=== PATIENT | female | born 1945 | race African-American/Black ===

== ENCOUNTER 2017-09-12 14:41 | Inpatient (IN) | payer OTHER, MEDICAID ==
[~2017-09-12] VITALS: Ht 152.4 cm; Wt 88.5 kg
[2017-09-12] VITALS (10 sets, daily range): BP systolic 78–100; BP diastolic 35–84
--- NOTE | 2017-09-12 14:45 | NUR ---
[id number] FROM [facility] FOR LOW BP- SBP-70'S, PATIENT HAD SOME LOW BP EPISODES YESTERDAY. RR IS EVEN AND UNLABORED WITH NAD NOTED. SKIN IS WARM AND DRY. AWAITING MD FOR EVAL. PLACED ON MONITOR. WILL CONTINUOUSLY MONITOR THE PATIENT.
--- NOTE | 2017-09-12 14:56 | NUR ---
DR COX AT FOR EVL.
[2017-09-12] MEDS ORDERED: ACETAMINOPHEN 650 MG/SUPP.RECT RC ONE (15:00)
[2017-09-12 15:09] LABS: BASOPHILS # (AUTO) 0.1 /CMM (0.0-0.2); BASOPHILS % (AUTO) 0.3 % (0.0-2.0); EOSINOPHILS # (AUTO) 0.9 /CMM (0.0-0.7); EOSINOPHILS % (AUTO) 3.1 % (0.0-6.0); HEMATOCRIT 34 % (33-45); LYMPHOCYTES # (AUTO) 0.7 /CMM (0.8-4.8); LYMPHOCYTES % (AUTO) 2.3 % (20.0-44.0); MEAN CORPUSCULAR HEMOGLOBIN 28 PG (26.0-33.0); MEAN CORPUSCULAR HGB CONC 33 g/dl (31.0-36.0); MEAN CORPUSCULAR VOLUME 86 fL (82-100); MONOCYTES # (AUTO) 1.7 /CMM (0.1-1.30); MONOCYTES % (AUTO) 5.9 % (2.0-12.0); NEUTROPHILS # (AUTO) 25.9 /CMM (1.8-8.9); NEUTROPHILS % (AUTO) 88.4 % (43.0-81.0); PLATELET COUNT (AUTO) 113 /CMM (150-450); RDW COEFFICIENT OF VARIATION 18.1 (11.5-15.0); RED BLOOD CELL COUNT(AUTO) 3.95 MIL/uL (4.0-5.2); WHITE BLOOD COUNT (AUTO) 29.3 K/uL (4.3-11.0)
[2017-09-12] MEDS ORDERED: ACETAMINOPHEN 650 MG/20.3 ML UDC ONE (15:09)
[2017-09-12 15:20] LABS: INR 1.06 (0.85-1.15)
[2017-09-12 15:24] LABS: TROPONIN I 0.344 ng/mL (0.00-0.056)
[2017-09-12] MEDS ORDERED: ACETAMINOPHEN 650 MG/20.3 ML UDC GT ONE (15:30)
[2017-09-12] MEDS ORDERED: ALBUMIN 25% 12.5 GM/50 ML BOTTLE IV ONE (15:30)
[2017-09-12 15:38] LABS: ALANINE AMINOTRANSFERASE 43 U/L (12-78); ALBUMIN 2.8 g/dL (3.4-5.0); ALKALINE PHOSPHATASE 226 U/L (46-116); ASPARTATE AMINOTRANSFERASE 74 U/L (15-37); BILIRUBIN,DIRECT 0.2 mg/dL (0.0-0.2); BILIRUBIN,TOTAL 0.5 mg/dL (0.2-1.0); CALCIUM, SERUM 11.6 mg/dL (8.5-10.1); CARBON DIOXIDE 21 mmol/L (21-32); CHLORIDE 92 mmol/L (98-107); POTASSIUM 5.7 mmol/L (3.5-5.1); SODIUM SERUM 136 mmol/L (136-145); TOTAL PROTEIN, SERUM 8.7 g/dL (6.4-8.2)
[2017-09-12 15:40] LABS: CREATININE 8.2 mg/dL (0.6-1.3); GLUCOSE 421 mg/dL (74-106); UREA NITROGEN, BLOOD 134 mg/dL (7-18)
[2017-09-12 15:54] LABS: NEUTROPHILS % (MANUAL) 84 (42-76)
[2017-09-12 15:55] LABS: BAND % (MANUAL) 7 % (0.0-5.0); LYMPHOCYTES % (MANUAL) 2 % (16-48); MONOCYTES % (MANUAL) 7 % (0-11.0)
[2017-09-12] MEDS ORDERED: PIPERACILLIN /TAZOBACTAM 2.25 G in IV D5W 50 ML IV ONE (16:00)
[2017-09-12] MEDS ORDERED: VANCOMYCIN 1 GM in IV D5W 250 ML IV ONE ×2 (16:00→18:30)
[2017-09-12 16:05] LABS: ABG BASE EXCESS -4.9 mmol/L; ABG OXYGEN SATURATION 93.7 % (92.0-98.5); ABG PCO2 31.8 mmHg (35.0-45.0); ABG PH 7.395 (7.350-7.450); ABG PO2 75.7 mmHg (75.0-100.0); AaDO2 86.4 mmHg; COHb 0.7 % (0.5-1.5); MetHb 0.3 % (0.0-1.5); O2Hb 92.8 % (94.0-97.0); SITE, ABG Right Radial
[2017-09-12] MEDS ORDERED: ASPIRIN 81 MG TAB.CHEW NG ONE (16:30)
[2017-09-12] MEDS ORDERED: INSULIN REGULAR, HUMAN 100 UNIT/ML 10 ML VIAL IV ONE (16:30)
[2017-09-12] MEDS ORDERED: SODIUM POLYSTYRENE SULFONATE 15 G/60 ML BOTTLE NG ONE (16:30)
[2017-09-12] MEDS ORDERED: ALBUTEROL FS 2.5 MG/0.5 ML VIAL.NEB NEB ONE (16:30)
--- NOTE | 2017-09-12 16:30 | NUR ---
RESHMA EPRP CALLED [phone]
[2017-09-12] MEDS ORDERED: FERR220S2 GT (16:39)
[2017-09-12] MEDS ORDERED: PANT40TA2 GT (16:39)
[2017-09-12] MEDS ORDERED: HYDR-552 GT (16:39)
[2017-09-12] MEDS ORDERED: NUTR100037 GT (16:39)
[2017-09-12] MEDS ORDERED: FOLI0.8T2 GT (16:39)
[2017-09-12] MEDS ORDERED: ONDA4TAB8 PO (16:39)
[2017-09-12] MEDS ORDERED: LEVE500T9 GT (16:39)
[2017-09-12] MEDS ORDERED: ASPI-1169 GT (16:39)
[2017-09-12] MEDS ORDERED: INSU100V3 SQ (16:39)
[2017-09-12] MEDS ORDERED: SEVE0.8P GT (16:39)
[2017-09-12] MEDS ORDERED: LEVO25TA9 GT (16:39)
[2017-09-12] MEDS ORDERED: AMIO200T2 GT (16:39)
[2017-09-12] MEDS ORDERED: MIDO5TAB GT (16:39)
[2017-09-12] MEDS ORDERED: METO-295 GT (16:39)
[2017-09-12] MEDS ORDERED: BISA10SU8 RC (16:39)
[2017-09-12] MEDS ORDERED: HYDR-552 PO (16:39)
[2017-09-12] MEDS ORDERED: ESCI5TAB GT (16:39)
[2017-09-12] MEDS ORDERED: BISO5TAB2 GT (16:39)
[2017-09-12] MEDS ORDERED: ALBUMIN 25% 50 ML IV ONE ×4 (16:42→19:04)
--- NOTE | 2017-09-12 16:50 | NUR ---
[facility] PAGED [phone] LUKE PARAOPTOMETRIC. OK TO ADMIT TO HOSPITALIST PER RESHMA, PT IS UNSTABLE FOR TRANSFER
[2017-09-12] MEDS ORDERED: SODIUM POLYSTYRENE SULFONATE 15 G/60 ML BOTTLE ONE (17:04)
[2017-09-12] MEDS ORDERED: INSULIN REGULAR, HUMAN 100 UNIT/ML 10 ML VIAL ONE (17:05)
[2017-09-12] MEDS ORDERED: ASPIRIN 81 MG TAB.CHEW ONE (17:05)
--- NOTE | 2017-09-12 17:12 | NUR ---
AUTHORIZED TO SAY AT [facility] ICU BY [facility] PHYSICIAN DR JOSUÉ SHIRLEY. AUTHORIZATION NUMBER: [id number].
[2017-09-12] MEDS ORDERED: ALBUTEROL FS 2.5 MG/3 ML VIAL.NEB ONE (17:22)
--- NOTE | 2017-09-12 17:32 | NUR ---
PAGED DR RAI FOR CONSULT
--- NOTE | 2017-09-12 17:32 | NUR ---
REPAGED EPIC FOR ADMISSION PER DR COX
--- NOTE | 2017-09-12 18:25 | NUR ---
PICC LINE INSERTION AT BS.
[2017-09-12] MEDS ORDERED: IV NS 0.9% 1,000 ML BAG IV ONE (18:30)
[2017-09-12] MEDS ORDERED: NOREPINEPHRINE 8 MG in IV D5W 500 ML IV PRN (18:30)
[2017-09-12] MEDS ORDERED: ACETAMINOPHEN 650 MG/SUPP.RECT RC PRN (18:30)
[2017-09-12] MEDS ORDERED: INSULIN REGULAR, HUMAN 100 UNIT/ML 3 ML VIAL SQ PRN (18:30)
[2017-09-12] MEDS ORDERED: ONDANSETRON HCL/PF 4 MG/2 ML VIAL IVP PRN (18:30)
[2017-09-12] MEDS ORDERED: DEXTROSE 50%-WATER 50 ML DISP.SYRIN IV PRN (18:30)
--- NOTE | 2017-09-12 18:30 | NUR ---
REPORT GIVEN TO DAVID CUELLAR FOR [facility] ICU 259
[2017-09-12] MEDS ORDERED: FEE PK DOSING 1 MIN EA MC ONE (18:45)
--- NOTE | 2017-09-12 19:10 | NUR ---
Patient was anuric. Dr Corea made aware.
--- NOTE | 2017-09-12 19:15 | NUR ---
Report given to DAVID Clements for KHADIJAH.
[2017-09-12 19:31] LABS: ALANINE AMINOTRANSFERASE 40 U/L (12-78); ALBUMIN 3.1 g/dL (3.4-5.0); ALKALINE PHOSPHATASE 221 U/L (46-116); ASPARTATE AMINOTRANSFERASE 58 U/L (15-37); BILIRUBIN,DIRECT 0.3 mg/dL (0.0-0.2); BILIRUBIN,TOTAL 0.6 mg/dL (0.2-1.0); CALCIUM, SERUM 11.2 mg/dL (8.5-10.1); CARBON DIOXIDE 22 mmol/L (21-32); CHLORIDE 90 mmol/L (98-107); GLUCOSE 316 mg/dL (74-106); POTASSIUM 4.5 mmol/L (3.5-5.1); SODIUM SERUM 131 mmol/L (136-145); TOTAL PROTEIN, SERUM 8.6 g/dL (6.4-8.2)
[2017-09-12 19:43] LABS: UREA NITROGEN, BLOOD 142 mg/dL (7-18)
[2017-09-12] MEDS ORDERED: ALBUMIN 25% 25 GM in PREMIX 1 EA IV PRN (21:30)
[2017-09-12] MEDS ORDERED: ALBUMIN 25% 100 ML IV ONE (21:31)
[2017-09-12] MEDS ORDERED: ALBUMIN 25% 25 GM in PREMIX 1 EA IV ONE (22:00)
[2017-09-12] MEDS: PIPERACILLIN /TAZOBACTAM 2.25 G in IV NS 0.9% 50 ML IV SCH (22:37)
--- NOTE | 2017-09-12 23:00 | NUR ---
ENERGY AUDIT ADVISOR. AROUND GT SITE LEAKING NOTED.
--- NOTE | 2017-09-12 23:20 | NUR ---
TRAILER ASSEMBLER, ADMISSION, RECEIVED THE PT FROM ER [facility]IA [facility], ROOM 259,ADMITTED FOR SEPSIS,PNA, .PT NONVERBAL OPEN EYES, DOES NOT FOLLOW COMMANDS. MANAGER USER INTERFACE SHOWING NSR. IV RT UPPER ARM MID LINE SALINE LOCK. TRACH INTACT. SHILEY #6,T PIECE CONNECTED TO TRACH TUBE. SAT 98%. NO ACUTE DISTRESS NOTED. GT INTACT. RT SUBCLAVIAN HD CATH INTACT, HOB ELEVATED. SACRAL EXCORIATION NOTED, AFEBRILE. WILL CONTINUE TO MONITOR VITALS.
--- NOTE | 2017-09-12 23:27 | NUR ---
HD DONE. NO FLUIDS REMOVED. , WILL CONTINUE TO MONITOR VITALS.
--- NOTE | 2017-09-12 23:29 | NUR ---
NUCLEAR AUXILIARY OPERATOR, JEFFREY NOT GIVEN , PAGED DR WHATLEY, CLARIFIED THE MD. WILL CONTINUE TO MONITOR.
--- NOTE | 2017-09-12 23:47 | NUR ---
CEO & FOUNDER. DR WHATLEY MADE AWARE NO NEED IV FLUIDS.
[2017-09-13] VITALS (61 sets, daily range): BP systolic 64–140; BP diastolic 31–97
[2017-09-13] MEDS ORDERED: PIPERACILLIN /TAZOBACTAM 4.5 G in IV D5W 100 ML IV SCH ×2
[2017-09-13] MEDS: BLOOD SUGAR DIAGNOSTIC 1 EACH STRIP IN SCH ×2 (00:06→05:13)
--- NOTE | 2017-09-13 04:45 | NUR ---
FINE JEWELRY SALES ASSOCIATE. AM CARE. ORAL CARE, BED BATH GIVEN. LINEN CHANGED. TRACH INTACT. OXYGEN CONNECTED TO TRACH, HOB ELEVATED. GT INTACT. IV RT UPPER ARM MID LINE. SALINE LOCK. AFEBRILE. TURN AND REPOSITION Q2H. WILL CONTINUE TO MONITOR VITALS.
[2017-09-13] MEDS: PIPERACILLIN /TAZOBACTAM 2.25 G in IV NS 0.9% 50 ML IV SCH ×3 (05:04→20:28)
--- NOTE | 2017-09-13 05:31 | NUR ---
R D MANAGER AROUND [id number]. MONITOR SHOWING AFIB UNCONTROLLED. EKG STAT DONE. PAGED DR WHATLEY. WAITING FOR CALL BACK
[2017-09-13 05:32] LABS: HEMATOCRIT 29 % (33-45); HEMOGLOBIN 9.2 g/dL (11.5-14.8); LYMPHOCYTES # (AUTO) 0.5 /CMM (0.8-4.8); LYMPHOCYTES % (AUTO) 1.9 % (20.0-44.0); MEAN CORPUSCULAR HEMOGLOBIN 28 PG (26.0-33.0); MEAN CORPUSCULAR HGB CONC 32 g/dl (31.0-36.0); MEAN CORPUSCULAR VOLUME 87 fL (82-100); MONOCYTES % (AUTO) 11.2 % (2.0-12.0); NEUTROPHILS # (AUTO) 23.6 /CMM (1.8-8.9); NEUTROPHILS % (AUTO) 86.9 % (43.0-81.0); PLATELET COUNT (AUTO) 81 /CMM (150-450); RDW COEFFICIENT OF VARIATION 19.1 (11.5-15.0); RED BLOOD CELL COUNT(AUTO) 3.29 MIL/uL (4.0-5.2); WHITE BLOOD COUNT (AUTO) 27.1 K/uL (4.3-11.0)
[2017-09-13 05:53] LABS: TROPONIN I 0.233 ng/mL (0.00-0.056)
[2017-09-13] MEDS ORDERED: AMIODARONE 150 MG/3 ML VIAL IV ONE (05:56)
[2017-09-13 05:59] LABS: ALANINE AMINOTRANSFERASE 37 U/L (12-78); ALBUMIN 3.6 g/dL (3.4-5.0); ALKALINE PHOSPHATASE 180 U/L (46-116); ASPARTATE AMINOTRANSFERASE 62 U/L (15-37); BILIRUBIN,TOTAL 0.7 mg/dL (0.2-1.0); CALCIUM, SERUM 11.4 mg/dL (8.5-10.1); CARBON DIOXIDE 24 mmol/L (21-32); CHLORIDE 98 mmol/L (98-107); CREATININE 6.7 mg/dL (0.6-1.3); GLUCOSE 138 mg/dL (74-106); POTASSIUM 4.8 mmol/L (3.5-5.1); SODIUM SERUM 142 mmol/L (136-145); TOTAL PROTEIN, SERUM 8.4 g/dL (6.4-8.2)
[2017-09-13] MEDS ORDERED: VANCOMYCIN 500 MG in IV NS 0.9% 100 ML IV PRN (06:00)
[2017-09-13] MEDS ORDERED: PHENYLEPHRINE 80 MG in IV NS 0.9% 250 ML IV PRN (06:00)
[2017-09-13 06:01] LABS: UREA NITROGEN, BLOOD 111 mg/dL (7-18)
[2017-09-13] MEDS ORDERED: PHENYLEPHRINE 10 MG/ML VIAL ONE (06:02)
[2017-09-13] MEDS: AMIODARONE 900 MG in IV D5W 482 ML IV PRN ×2 (06:03→17:46)
[2017-09-13] MEDS: PHENYLEPHRINE 80 MG in IV D5W 250 ML IV PRN ×3 (06:30→23:00)
[2017-09-13] MEDS ORDERED: PROPOFOL 100 ML IV PRN (07:30)
--- NOTE | 2017-09-13 07:45 | NUR ---
RN NOTES DR BHATT AT BEDSIDE, PT SEEN AND EVALUATED. PT FOR CARDIOVERSION NOW, HR 150'S AT THIS TIME. ONGOING AMIODARONE 1 MG/MIN INFUSING ON KHOA MIDLINE. SBP 80'S AT THIS TIME, CHRIS DRIP ADJUSTED TO 100MCG/MIN. PER DR BHATT MAY START PT ON PROPOFOL FOR SEDATION PRE CARDIOVERSION. CHARGE NURSE ANA AT BEDSIDE
[2017-09-13] MEDS ORDERED: ADENOSINE 6 MG/2 ML VIAL ONE (07:51)
--- NOTE | 2017-09-13 07:51 | NUR ---
RN NOTES 0751 PT PLACED ON VENTILATOR, SEDATED ON PROPOFOL 50MCG/KG/MIN. HR 150'S, ADENOSINE 12MG IV PUSH GIVEN X1 ORDERED BY DR BHATT. HR WENT DOWN TO 80'S BRIEFLY. THEN WENT BACK TO 130'S. CARDIOVERSION X1 @200JOULES BY DR BHATT. NURSES AT BEDSIDE. RT AT BEDSIDE. VS CLOSELY MONITORED. HR IMPROVED, 130'S AT THIS TIME 0805 S/P CARDIOVERSION. HR SR NOW HR 75 BPM. WILL CONT TO MONITOR CLOSELY.
[2017-09-13] MEDS: Magnesium 1GM/D5W 100ML PREMIX 100 ML IV SCH ×2 (08:11→09:54)
[2017-09-13] MEDS ORDERED: ADENOSINE 6 MG/2 ML VIAL IVP ONE (08:30)
--- NOTE | 2017-09-13 10:05 | NUR ---
RN NOTES PLACED BACK ON T-PIECE #35%. DIPRIVAN TURNED OFF. PT SR ON AVIATION ELECTRONIC WARFARE OPERATOR HR 80'S. AFEBRILE. WILL MONITOR CLOSELY
[2017-09-13 10:39] LABS: BAND % (MANUAL) 1 % (0.0-5.0); LYMPHOCYTES % (MANUAL) 7 % (16-48); MONOCYTES % (MANUAL) 6 % (0-11.0); NEUTROPHILS % (MANUAL) 86 (42-76)
[2017-09-13] MEDS: *INSULIN REGULAR(HUMULIN R)HUM 100 UNIT/ML VIAL SQ PRN ×3 (12:17→23:53)
[2017-09-13] MEDS ORDERED: INSULIN REGULAR, HUMAN 100 UNIT/ML 3 ML VIAL SQ PRN (12:30)
[2017-09-13] MEDS ORDERED: DEXTROSE 50%-WATER 50 ML DISP.SYRIN IV PRN (12:30)
[2017-09-13] MEDS: HYDROMORPHONE INJ 0.5 MG/0.5 ML SYRINGE IV PRN (14:15)
[2017-09-13] MEDS ORDERED: HYDROGEL DRESSING 90 GM TUBE TP PRN (15:00)
[2017-09-13 17:09] LABS: ABG BASE EXCESS -6.9 mmol/L; ABG PCO2 36.4 mmHg (35.0-45.0); ABG PH 7.321 (7.350-7.450); ABG PO2 67.5 mmHg (75.0-100.0); AaDO2 89.2 mmHg; MetHb 0.9 % (0.0-1.5); O2Hb 87.3 % (94.0-97.0); SITE, ABG Right Brachial; VENT MODE, BG COOL AEROSOL
[2017-09-13] MEDS ORDERED: IV NS 0.9% 250 ML IV ONE ×3 (17:10→17:45)
--- NOTE | 2017-09-13 17:10 | NUR ---
RN NOTES PT NOTED BP 80'S, PT ON CHRIS DRIP@300MIC/MIN. REPORTED TO DR CONCEPCION, ABG STAT. PER OKAY TO GIVE IV BOLUS 250. MAY GIVE ANOTHER IV 250 BOLUS IF SBP BELOW 90'S. 173 ABG RESULTS REPORTED TO DR CONCEPCION. NO NEW ORDER RECEIVED AT THIS TIME. 174 PT BP STILL LOW 86/59. PER DR CONCEPCION GIVE ANOTHER 1V BOLUS 250 AND MAY START IVF NS@50ML/HR. DAUGHTER AT BEDSIDE. UPDATES RE PLAN OF CARE PROVIDED.
[2017-09-13] MEDS: BLOOD SUGAR DIAGNOSTIC 1 EACH STRIP VI SCH ×2 (17:46→23:50)
[2017-09-13] MEDS ORDERED: IV NS 0.9% 1,000 ML BAG IV PRN (18:30)
[2017-09-13] MEDS: IV NS 0.9% 1,000 ML IV PRN (18:34)
--- NOTE | 2017-09-13 19:42 | NUR ---
GRAPHIC SPECIALIST. INITIAL ASSESSMENT. RECEIVED THE PT REST ON THE BED, TRACH INTACT. OXYGEN VIA TRACH T PICS. SAT 98%. NO ACUTE DISTRESS NOTED. CASE FINISHING MACHINE ADJUSTER SHOWING NSR. IV RT UPPER ARM MID LINE IVF NS 50 ML/H,. AMIO 0.5MCG/MIN,CHRIS 300MCG/MIN,AMIO 0.5MCG.MIN,IV RT UPPER ARM MID LINE RT SUBCLAVIAN HD CATH ,GT INTACT, NPO. HOB ELEVATED, TURB=N AND REPOSITION Q2H. WILL CONTINUE TO MONITOR VITALS.
--- NOTE | 2017-09-13 21:26 | NUR ---
Patient is trach dependent, she resides at [facility] sub-acute unit [phone]. Patient is non-verbal, totally dependent with adl's. She gets inhouse hemodialysis every MWF at the [facility]. Patient is a [employer] member, she is not stable for transfer, he is on high dose levophed with marginal blood pressure and his off the ventilator on cool aerosol. Addendum: 09/13/17 at 2126 by KIERRA CONNELL RN Amended: Links added.
[2017-09-14] VITALS (39 sets, daily range): BP systolic 85–136; BP diastolic 19–91
[2017-09-14] MEDS: HYDROMORPHONE INJ 0.5 MG/0.5 ML SYRINGE IV PRN (00:01)
--- NOTE | 2017-09-14 03:40 | NUR ---
OUTSIDE CONTRACTOR SALES. AM CARE, ORAL CARE, BED BATH GIVEN. LINEN CHANGED. REMAINING SAME OXYGEN TOLERATED WELL. SAT 98%. WRAPPER CASHIER SHOWING NSR, IV RT UPPER ARM MIDLINE . IVF NS 50ML/H,CHRIS 300MCG/MIN, LEVOPHED 2MCG/KGMIN, GT INTACT. WILMAN IV RT UPPER ARM MID LINE. IVF NPO. TURN AND REPOSITION Q2H. WILL CONTINUE TO MONITOR.
[2017-09-14] MEDS: PHENYLEPHRINE 80 MG in IV D5W 250 ML IV PRN ×3 (04:04→18:03)
[2017-09-14] MEDS: PIPERACILLIN /TAZOBACTAM 2.25 G in IV NS 0.9% 50 ML IV SCH ×3 (04:56→21:35)
[2017-09-14 05:08] LABS: EOSINOPHILS # (AUTO) 0.1 /CMM (0.0-0.7); EOSINOPHILS % (AUTO) 0.2 % (0.0-6.0); HEMATOCRIT 29 % (33-45); HEMOGLOBIN 9.4 g/dL (11.5-14.8); LYMPHOCYTES # (AUTO) 0.6 /CMM (0.8-4.8); LYMPHOCYTES % (AUTO) 1.4 % (20.0-44.0); MEAN CORPUSCULAR HEMOGLOBIN 28 PG (26.0-33.0); MEAN CORPUSCULAR HGB CONC 33 g/dl (31.0-36.0); MEAN CORPUSCULAR VOLUME 87 fL (82-100); MONOCYTES # (AUTO) 4.8 /CMM (0.1-1.30); MONOCYTES % (AUTO) 11.4 % (2.0-12.0); NEUTROPHILS # (AUTO) 36.3 /CMM (1.8-8.9); PLATELET COUNT (AUTO) 61 /CMM (150-450); RDW COEFFICIENT OF VARIATION 18.8 (11.5-15.0); RED BLOOD CELL COUNT(AUTO) 3.33 MIL/uL (4.0-5.2)
[2017-09-14] MEDS: BLOOD SUGAR DIAGNOSTIC 1 EACH STRIP VI SCH (05:19)
[2017-09-14 05:22] LABS: WHITE BLOOD COUNT (AUTO) 41.7 K/uL (4.3-11.0)
[2017-09-14 05:34] LABS: ALANINE AMINOTRANSFERASE 38 U/L (12-78); ALBUMIN 2.6 g/dL (3.4-5.0); ALKALINE PHOSPHATASE 162 U/L (46-116); ASPARTATE AMINOTRANSFERASE 66 U/L (15-37); BILIRUBIN,TOTAL 0.9 mg/dL (0.2-1.0); CALCIUM, SERUM 7.9 mg/dL (8.5-10.1); CARBON DIOXIDE 23 mmol/L (21-32); CHLORIDE 103 mmol/L (98-107); CREATININE 4.6 mg/dL (0.6-1.3); GLUCOSE 339 mg/dL (74-106); MAGNESIUM 2.4 mg/dL (1.8-2.4); POTASSIUM 3.8 mmol/L (3.5-5.1); SODIUM SERUM 146 mmol/L (136-145); TOTAL PROTEIN, SERUM 7.4 g/dL (6.4-8.2); UREA NITROGEN, BLOOD 71 mg/dL (7-18)
[2017-09-14 05:37] LABS: LYMPHOCYTES % (MANUAL) 3 % (16-48); MONOCYTES % (MANUAL) 7 % (0-11.0); NEUTROPHILS % (MANUAL) 90 (42-76)
--- NOTE | 2017-09-14 07:30 | NUR ---
RN NOTES RECEIVED PT RESTING IN BED. TRACH INTACT. T PIECE CONNECTED TO COOL AEROSOL AT 35% O2. NO ACUTE DISTRESS NOTED. AFIB/ AFLUTTER ON PRESS TECHNICIAN HR 78. NOTED FEBRILE, TEMP 101.5. IV RT UPPER ARM MID LINE WITH ONGOING IVF NS @50 ML/HR. AMIO 0.5MCG/MIN, CHRIS 300MCG/MIN. RT SUBCLAVIAN HD CATH, DRESSING CDI. GT INTACT, CLAMPED. PT NPO. HOB ELEVATED, REPOSITIONED FOR COMFORT. WILL CLOSELY MONITOR
[2017-09-14] MEDS: Z GUARD REMEDY 2 OZ OINT TP SCH (08:36)
[2017-09-14] MEDS ORDERED: *INSULIN REGULAR(HUMULIN R)HUM 100 UNIT/ML VIAL SQ PRN (10:00)
[2017-09-14] MEDS ORDERED: HEPARIN SODIUM, PORCINE 5000 UNITS/1 ML VIAL SQ SCH (10:00)
[2017-09-14] MEDS ORDERED: DEXTROSE 50%-WATER 50 ML DISP.SYRIN IV PRN (10:30)
[2017-09-14] MEDS: PANTOPRAZOLE 40 MG VIAL IV SCH (11:41)
[2017-09-14] MEDS: DIGOXIN INJ 0.5 MG/2 ML AMPUL IV SCH ×3 (11:42→23:35)
--- NOTE | 2017-09-14 11:58 | NUR ---
WOUND CARE CONSULT: PT PRESENTS WITH LEFT GREAT TOE ESCHAR, SACRAL SCARRING AND PERIANAL EXCORIATION, PRESENT ON ADMISSION. PT IS INCONTINENT OF STOOL. CURRENT DHAVAL SCORE IS 12. ALL SKIN PROTECTION AND WOUND RECOMMENDATIONS DISCUSSED WITH NURSING STAFF. WILL SEE PRN. PT ON FIRST STEP MATTRESS. IN AGREEMENT WITH PLAN OF CARE. Addendum: 09/14/17 at 1159 by JAMIE GAGNON WNDNU Amended: Links added.
[2017-09-14] MEDS ORDERED: VANCOMYCIN 1 GM in IV D5W 250 ML IV PRN (12:00)
[2017-09-14] MEDS: BLOOD SUGAR DIAGNOSTIC 1 EACH STRIP IN SCH ×3 (12:03→21:36)
[2017-09-14] MEDS: INSULIN REGULAR, HUMAN 100 UNIT/ML 3 ML VIAL SQ PRN ×3 (12:18→21:35)
[2017-09-14] MEDS: IV NS 0.9% 1,000 ML IV PRN ×2 (14:34→18:03)
[2017-09-14] MEDS: POTASSIUM PHOSPHATE MM 7.5 MMOL in IV D5W 100 ML IV SCH ×2 (16:18→19:16)
--- NOTE | 2017-09-14 20:04 | NUR ---
EMERGENCY SPILL RESPONSE TECHNICIAN. INITIAL ASSESSMENT. RECEIVED THE PT REST ON THE BED. TRACH INTACT. OXYGEN T PIECE CONNECTED TO TRACH.PT RESPONDING PAIN. DOES NOT FOLLOW COMMANDS, GT INTACT, IV RT UPPER ARM MID LINE. IVF NS 100ML/H.HOB ELEVATED,
[2017-09-15] VITALS (77 sets, daily range): BP systolic 52–164; BP diastolic 23–97
[2017-09-15] MEDS: BLOOD SUGAR DIAGNOSTIC 1 EACH STRIP IN SCH ×6 (01:02→20:53)
--- NOTE | 2017-09-15 02:53 | NUR ---
CASTING TESTER, GT FOUND FELL OFF INSIDE THE PT GOWN, NO BLEEDING NOTED. FC CATH INSERTED, WILL CONTINUE TO MONITOR.
--- NOTE | 2017-09-15 03:16 | NUR ---
STEAM AND POWER SUPERVISOR. AM CARE, ORAL CARE, BED BATH GIVEN. LINEN CHANGED, REMAINING SAME OXYGEN VIA TRACH , SAT 98%. RN DOCUMENTATION SHOWING AFIB, HOB ELEVATED, TURN AND REPOSITION Q2H, WILL CONTINUE TO MONITOR VITALS,
[2017-09-15] MEDS: IV NS 0.9% 1,000 ML IV PRN ×2 (03:50→14:20)
[2017-09-15] MEDS: PIPERACILLIN /TAZOBACTAM 2.25 G in IV NS 0.9% 50 ML IV SCH ×3 (04:32→20:43)
[2017-09-15] MEDS: PHENYLEPHRINE 80 MG in IV D5W 250 ML IV PRN ×3 (05:27→17:45)
[2017-09-15 05:28] LABS: EOSINOPHILS # (AUTO) 0.4 /CMM (0.0-0.7); EOSINOPHILS % (AUTO) 1.1 % (0.0-6.0); HEMATOCRIT 30 % (33-45); LYMPHOCYTES # (AUTO) 1.2 /CMM (0.8-4.8); LYMPHOCYTES % (AUTO) 3.1 % (20.0-44.0); MEAN CORPUSCULAR HEMOGLOBIN 28 PG (26.0-33.0); MEAN CORPUSCULAR HGB CONC 33 g/dl (31.0-36.0); MEAN CORPUSCULAR VOLUME 83 fL (82-100); MONOCYTES # (AUTO) 1.4 /CMM (0.1-1.30); MONOCYTES % (AUTO) 3.6 % (2.0-12.0); NEUTROPHILS # (AUTO) 35.5 /CMM (1.8-8.9); NEUTROPHILS % (AUTO) 92.2 % (43.0-81.0); PLATELET COUNT (AUTO) 95 /CMM (150-450); RDW COEFFICIENT OF VARIATION 20.4 (11.5-15.0); RED BLOOD CELL COUNT(AUTO) 3.61 MIL/uL (4.0-5.2)
[2017-09-15 05:48] LABS: WHITE BLOOD COUNT (AUTO) 38.5 K/uL (4.3-11.0)
[2017-09-15 06:11] LABS: LYMPHOCYTES % (MANUAL) 2 % (16-48); MONOCYTES % (MANUAL) 6 % (0-11.0); NEUTROPHILS % (MANUAL) 92 (42-76)
--- NOTE | 2017-09-15 06:21 | NUR ---
STREET CONTRACTOR, AFIA MANUFACTURING GROUP LEADER MADE AWARE GT OUT.
[2017-09-15 06:31] LABS: ALANINE AMINOTRANSFERASE 33 U/L (12-78); ALBUMIN 2.4 g/dL (3.4-5.0); ALKALINE PHOSPHATASE 152 U/L (46-116); ASPARTATE AMINOTRANSFERASE 64 U/L (15-37); BILIRUBIN,TOTAL 1.2 mg/dL (0.2-1.0); CALCIUM, SERUM 10.3 mg/dL (8.5-10.1); CARBON DIOXIDE 21 mmol/L (21-32); CHLORIDE 103 mmol/L (98-107); CREATININE 5.5 mg/dL (0.6-1.3); GLUCOSE 158 mg/dL (74-106); MAGNESIUM 2.2 mg/dL (1.8-2.4); PHOSPHORUS 3.7 mg/dL (2.5-4.9); POTASSIUM 4.4 mmol/L (3.5-5.1); SODIUM SERUM 144 mmol/L (136-145); TOTAL PROTEIN, SERUM 7.2 g/dL (6.4-8.2)
[2017-09-15 06:34] LABS: UREA NITROGEN, BLOOD 84 mg/dL (7-18)
--- NOTE | 2017-09-15 07:00 | NUR ---
icu initial note- received pt, drowsy, able to track, nods head to simple questions, pt is has shiley #6 cool aerosol @35%, sating well, no s/s of resp.distress or sob noted at this time, pt is on bedside monitor showing uncontrolled a fib in 90's, no c/o of discomfort or chest pain noted, pt currently has f/c in place of gtube stoma, gtube pulled out, md aware, pt is anuric, multiple skin issues noted, wound treatment ack and will be carried out , pt has rfa#18g, darcy midline, c/d/i/patent, flushing well, running ns@100ml/hr, mayelin @ 150mcg/min, pt has rcw hd cath, dressing c/d/i, isolation precautions observed at all times, all safety measures in place at all times, call light within easy reach, will monitor pt closely for changes
[2017-09-15] MEDS: Z GUARD REMEDY 2 OZ OINT TP SCH (09:01)
[2017-09-15] MEDS: PANTOPRAZOLE 40 MG VIAL IV SCH (09:01)
[2017-09-15] MEDS: INSULIN REGULAR, HUMAN 100 UNIT/ML 3 ML VIAL SQ PRN ×2 (09:05→20:56)
--- NOTE | 2017-09-15 09:15 | NUR ---
icu note- daughter francisco at bedside, all questions and concerns answered
--- NOTE | 2017-09-15 10:50 | NUR ---
icu note- notified dr. burton pt does not have gtube, per okay to give Dilantin after reinsertion of gtube
[2017-09-15] MEDS ORDERED: DIGOXIN ELIX UDC 0.25 MG/5 ML UDC GT SCH (13:00)
--- NOTE | 2017-09-15 13:10 | NUR ---
icu note- pt is currently receiving hd at this time
--- NOTE | 2017-09-15 13:55 | NUR ---
icu note- blood cx collected from hd nurse, lab called to come and orange picker cx
--- NOTE | 2017-09-15 14:50 | NUR ---
icu note- lewis stout replaced gtube, ordered kub and gi study to check placement. radiology aware
[2017-09-15] MEDS ORDERED: EPOETIN ALFA (10,000 UNIT) 10,000 UNIT/ML VIAL SQ ONE (15:00)
[2017-09-15] MEDS ORDERED: DIATR MEGLU/DIATRIZOATE SODIUM 30 ML BOTTLE (GASTROGRAPHIN) ONE (15:05)
[2017-09-15] MEDS ORDERED: VANCOMYCIN 1 GM in IV D5W 250 ML IV ONE (16:00)
--- NOTE | 2017-09-15 16:44 | NUR ---
icu note- hd completed, 1l removed
--- NOTE | 2017-09-15 18:17 | NUR ---
icu note- per md, keep pt npo until 09/16/17
--- NOTE | 2017-09-15 19:10 | NUR ---
ICU/RN RECEIVED PT ON COOL AEROSOL PER TRACH,GRIMACES WHEN TOUCHED AND SPOKEN TO,DOES NOT OPEN EYES.ON COMMANDS.PHENYLEPHRINE DRIP @150MCG/MIN.IVF NS @50ML/HR.MONITOR SHOWS SINUS TACH AT 120/MIN.SUCTIONED FOR SCANT AMT PINK-TINGED SECRETIONS FR.TRACH.ORAL CARE DONE. Addendum: 09/15/17 at 2018 by CESAR MATA RN ON COOL AEROSOL AT 35%,MONITOR SHOWS ST-AFIB
[2017-09-16] VITALS (72 sets, daily range): BP systolic 50–187; BP diastolic 26–101
[2017-09-16] MEDS: BLOOD SUGAR DIAGNOSTIC 1 EACH STRIP IN SCH ×6 (00:31→18:33)
[2017-09-16] MEDS: INSULIN REGULAR, HUMAN 100 UNIT/ML 3 ML VIAL SQ PRN (00:41)
[2017-09-16] MEDS: PHENYLEPHRINE 80 MG in IV D5W 250 ML IV PRN ×2 (03:54→18:32)
[2017-09-16] MEDS: PIPERACILLIN /TAZOBACTAM 2.25 G in IV NS 0.9% 50 ML IV SCH (05:29)
[2017-09-16 05:37] LABS: EOSINOPHILS # (AUTO) 0.2 /CMM (0.0-0.7); EOSINOPHILS % (AUTO) 0.4 % (0.0-6.0); HEMATOCRIT 31 % (33-45); LYMPHOCYTES # (AUTO) 1.4 /CMM (0.8-4.8); LYMPHOCYTES % (AUTO) 3.6 % (20.0-44.0); MEAN CORPUSCULAR HEMOGLOBIN 28 PG (26.0-33.0); MEAN CORPUSCULAR HGB CONC 33 g/dl (31.0-36.0); MEAN CORPUSCULAR VOLUME 86 fL (82-100); MONOCYTES # (AUTO) 3.6 /CMM (0.1-1.30); MONOCYTES % (AUTO) 9.4 % (2.0-12.0); NEUTROPHILS # (AUTO) 32.8 /CMM (1.8-8.9); NEUTROPHILS % (AUTO) 86.6 % (43.0-81.0); RDW COEFFICIENT OF VARIATION 18.7 (11.5-15.0); RED BLOOD CELL COUNT(AUTO) 3.58 MIL/uL (4.0-5.2)
[2017-09-16 05:41] LABS: PLATELET COUNT (AUTO) 22 /CMM (150-450); WHITE BLOOD COUNT (AUTO) 37.9 K/uL (4.3-11.0)
[2017-09-16 05:53] LABS: CALCIUM, SERUM 9.4 mg/dL (8.5-10.1); CARBON DIOXIDE 24 mmol/L (21-32); CHLORIDE 105 mmol/L (98-107); CREATININE 4.6 mg/dL (0.6-1.3); GLUCOSE 145 mg/dL (74-106); LYMPHOCYTES % (MANUAL) 2 % (16-48); MAGNESIUM 2.1 mg/dL (1.8-2.4); MONOCYTES % (MANUAL) 11 % (0-11.0); NEUTROPHILS % (MANUAL) 87 (42-76); PHOSPHORUS 2.7 mg/dL (2.5-4.9); POTASSIUM 4.2 mmol/L (3.5-5.1); SODIUM SERUM 143 mmol/L (136-145); UREA NITROGEN, BLOOD 52 mg/dL (7-18)
[2017-09-16] MEDS ORDERED: VANCOMYCIN 500 MG in IV NS 0.9% 100 ML IV PRN (06:00)
--- NOTE | 2017-09-16 07:00 | NUR ---
icu initial note- received pt, drowsy, able to track, nods head to simple questions, pt is has shiley #6 cool aerosol @35%, sating well, no s/s of resp.distress or sob noted at this time, pt is on bedside monitor showing uncontrolled a fib w/pvc's in 90's, no c/o of discomfort or chest pain noted, pt has gtube, clamped at this time, pt is anuric, multiple skin issues noted, wound treatment ack and will be carried out , pt has rfa#18g, darcy midline, c/d/i/patent, flushing well, running ns@50ml/hr, mayelin @ 100mcg/min, pt has rcw hd cath, dressing c/d/i, isolation precautions observed at all times, all safety measures in place at all times, call light within easy reach, will monitor pt closely for changes
[2017-09-16 08:54] LABS: ABG OXYGEN SATURATION 92.9 % (92.0-98.5); ABG PCO2 35.7 mmHg (35.0-45.0); ABG PH 7.412 (7.350-7.450); AaDO2 85.5 mmHg; COHb 0.1 % (0.5-1.5); MetHb 0.4 % (0.0-1.5); O2Hb 92.4 % (94.0-97.0); SITE, ABG Right Brachial; VENT MODE, BG 28% CA
[2017-09-16] MEDS: Z GUARD REMEDY 2 OZ OINT TP SCH (08:54)
[2017-09-16] MEDS: IV NS 0.9% 1,000 ML IV PRN (08:54)
[2017-09-16] MEDS: DIGOXIN INJ 0.5 MG/2 ML AMPUL IV SCH (09:57)
[2017-09-16] MEDS: PANTOPRAZOLE 40 MG VIAL IV SCH (09:57)
--- NOTE | 2017-09-16 10:00 | NUR ---
icu note- lab called regarding blood cx results, positive blood cultures- mrsa, rachell jovel freedom of information officer aware.
[2017-09-16 11:13] LABS: CALCITRIOL VIT D,1, 25 DIHYDRO 23.1 pg/mL (19.9-79.3)
--- NOTE | 2017-09-16 11:53 | NUR ---
icu note- received blood consent from daughter francisco noe, also received consent for perma cath removal from daughter francisco noe
--- NOTE | 2017-09-16 12:05 | NUR ---
icu note- pt will receive hd, after hd perma cath removal will be done, blood cx will be done later this evening
--- NOTE | 2017-09-16 12:05 | NUR ---
icu note- per dr. astorga keep pt npo
--- NOTE | 2017-09-16 12:13 | NUR ---
MARELY contacted [facility] and spoke to [place] to inquire if pt. has family. [place] informed MARELY that pt. has a daughter Michelle Goodwin who is very involved and can be reached at .
--- NOTE | 2017-09-16 12:15 | NUR ---
icu note- pt is currently receiving hd
[2017-09-16] MEDS: MEROPENEM 500 MG in IV NS 0.9% 50 ML IV SCH (15:25)
--- NOTE | 2017-09-16 15:26 | NUR ---
icu note- hd completed 1.3l out
--- NOTE | 2017-09-16 16:30 | NUR ---
icu note- per dr. carpenter given 2 unit platelets around [phone], check h/h after platelets given, dr. carpenter will come 09/17/17
--- NOTE | 2017-09-16 19:30 | NUR ---
SENIOR DEVELOPER: RECEIVED TRACH PT ON C/A AT 28% FI02. AWAKE AND ABLE TO NOD HEAD WHEN ASKED WT SIMPLE QUESTIONS. NO ACUTE DISTRESS, NO EVIDENCE OF DISCOMFORT. ON SR WT 1ST DEGREE AV BLOCK AND GOES IN AND OUT OF A. FIB MEJIA. WHEN HR GOES HIGH. TEMP. AT 100.7 COOLING MEASURES RENDERED. KHOA MIDLINE INFUSING PHENYLEPHRINE AT 70MCG/MIN AND NS AT 50ML/HR WT NO S/S OF INFILTRATION. REMAINS ANURIC. GT REMAINS CLAMPED. HOB AT 35 DEGREES. SAFETY PRECAUTION NOTED. WILL CONTINUE TO MONITOR.
--- NOTE | 2017-09-16 22:00 | NUR ---
ANIMAL TRAINER SUPERVISOR: STARTED 1ST UNIT OF PLATELET INFUSION. WILL MONITOR FOR ASE.
--- NOTE | 2017-09-16 22:45 | NUR ---
AIR SAMPLER: 2ND UNIT PLATELET TRANSFUSED WT NO ADVERSE SIDE EFFECTS. WILL CONTINUE TO MONITOR.
[2017-09-17] VITALS (53 sets, daily range): BP systolic 88–196; BP diastolic 32–91
[2017-09-17] MEDS: BLOOD SUGAR DIAGNOSTIC 1 EACH STRIP IN SCH ×4 (00:12→18:16)
[2017-09-17 05:25] LABS: EOSINOPHILS # (AUTO) 0.2 /CMM (0.0-0.7); EOSINOPHILS % (AUTO) 0.5 % (0.0-6.0); HEMATOCRIT 25 % (33-45); HEMOGLOBIN 8.1 g/dL (11.5-14.8); LYMPHOCYTES # (AUTO) 0.9 /CMM (0.8-4.8); LYMPHOCYTES % (AUTO) 2.3 % (20.0-44.0); MEAN CORPUSCULAR HEMOGLOBIN 28 PG (26.0-33.0); MEAN CORPUSCULAR HGB CONC 33 g/dl (31.0-36.0); MEAN CORPUSCULAR VOLUME 86 fL (82-100); MONOCYTES # (AUTO) 2.8 /CMM (0.1-1.30); MONOCYTES % (AUTO) 6.9 % (2.0-12.0); NEUTROPHILS # (AUTO) 36.6 /CMM (1.8-8.9); NEUTROPHILS % (AUTO) 90.3 % (43.0-81.0); PLATELET COUNT (AUTO) 55 /CMM (150-450); RDW COEFFICIENT OF VARIATION 19.1 (11.5-15.0); RED BLOOD CELL COUNT(AUTO) 2.89 MIL/uL (4.0-5.2)
[2017-09-17 05:41] LABS: CALCIUM, SERUM 9.1 mg/dL (8.5-10.1); CARBON DIOXIDE 21 mmol/L (21-32); CHLORIDE 104 mmol/L (98-107); CREATININE 3.8 mg/dL (0.6-1.3); GLUCOSE 167 mg/dL (74-106); MAGNESIUM 1.9 mg/dL (1.8-2.4); PHOSPHORUS 2.8 mg/dL (2.5-4.9); POTASSIUM 4.2 mmol/L (3.5-5.1); SODIUM SERUM 142 mmol/L (136-145); UREA NITROGEN, BLOOD 39 mg/dL (7-18)
[2017-09-17] MEDS: IV NS 0.9% 1,000 ML IV PRN (06:02)
[2017-09-17 06:12] LABS: WHITE BLOOD COUNT (AUTO) 40.5 K/uL (4.3-11.0)
--- NOTE | 2017-09-17 06:30 | NUR ---
QC MANAGER: NO KHADIJAH AT THIS TIME. STILL OFF NEOSYNEPHRINE SINCE 399. NO ACUTE DISTRESS, NO C/O PAIN OR EVIDENCE OF DISCOMFORT. SAFETY PRECAUTION NOTED AT ALL TIMES.
--- NOTE | 2017-09-17 07:10 | NUR ---
LICENSED RETAIL SUPERVISOR INITIAL NOTE PATIENT RECEIVED IN BED RESTING COMFORTABLY. OPENS EYES, NON VERBAL. HAS DELL VARGAS #6, SATING WELL. NO S/S OF RESPIRATORY DISTRESS OR SOB. NO S/S OF PAIN OR DISCOMFORT. SKIN IS WARM AND DRY TO TOUCH. IV SITE FLUSHED, PATENT. GTUBE, CLAMPPED,. SAFETY PRECAUTIONS IMPLEMENTED. BED IN LOCKED, LOW POSITION WITH TWO SIDE RAILS UP. WILL CONTINUE TO MONITOR CLOSELY.
[2017-09-17] MEDS: Z GUARD REMEDY 2 OZ OINT TP SCH (10:15)
[2017-09-17] MEDS: PANTOPRAZOLE 40 MG VIAL IV SCH (10:15)
[2017-09-17] MEDS ORDERED: LIDOCAINE HCL/MPF 1% 30 ML VIAL IJ ONE (10:50)
[2017-09-17 11:41] LABS: BAND % (MANUAL) 2 % (0.0-5.0); EOSINOPHILS % (MANUAL) 1 % (0-4); LYMPHOCYTES % (MANUAL) 11 % (16-48); MONOCYTES % (MANUAL) 3 % (0-11.0); NEUTROPHILS % (MANUAL) 83 (42-76)
[2017-09-17] MEDS: MEROPENEM 500 MG in IV NS 0.9% 50 ML IV SCH (13:02)
[2017-09-17] MEDS: INSULIN REGULAR, HUMAN 100 UNIT/ML 3 ML VIAL SQ PRN (18:18)
--- NOTE | 2017-09-17 19:30 | NUR ---
CARPENTER LABOR SUPERVISOR: RECEIVED TRACH PT TO COOL AEROSOL AT 28% FI02. NO ACUTE DISTRESS, NO EVIDENCE OF DISCOMFORT. OPENS EYES WHEN CALLED BY NAME OR TOUCHED, ABLE TO NOD HEAD FOR "YES" OR "NO". SR WT OCCASIONAL PVCs ON SENIOR JAVA UI DEVELOPER. STILL OFF VASOPRESSOR. AFEBRILE. KHOA MID LINE INFUSING NS AT 50ML/HR WT NO S/S OF INFILTRATION. GT REMAINS CLAMPED. HOB AT 35 DEGREES. SAFETY PRECAUTION NOTED. WILL CONTINUE TO MONITOR.
[2017-09-17] MEDS: CEFTAZIDIME 1 G in IV D5W 50 ML IV SCH (20:20)
[2017-09-18] VITALS (22 sets, daily range): BP systolic 95–142; BP diastolic 42–88
[2017-09-18] MEDS: BLOOD SUGAR DIAGNOSTIC 1 EACH STRIP IN SCH ×5 (00:44→20:46)
[2017-09-18] MEDS: INSULIN REGULAR, HUMAN 100 UNIT/ML 3 ML VIAL SQ PRN ×5 (00:45→20:50)
[2017-09-18] MEDS: IV NS 0.9% 1,000 ML IV PRN ×2 (02:41→20:51)
[2017-09-18 05:02] LABS: BASOPHILS % (AUTO) 0.1 % (0.0-2.0); EOSINOPHILS # (AUTO) 0.2 /CMM (0.0-0.7); EOSINOPHILS % (AUTO) 0.6 % (0.0-6.0); HEMATOCRIT 27 % (33-45); HEMOGLOBIN 8.8 g/dL (11.5-14.8); LYMPHOCYTES # (AUTO) 0.9 /CMM (0.8-4.8); LYMPHOCYTES % (AUTO) 2.7 % (20.0-44.0); MEAN CORPUSCULAR HEMOGLOBIN 28 PG (26.0-33.0); MEAN CORPUSCULAR HGB CONC 33 g/dl (31.0-36.0); MEAN CORPUSCULAR VOLUME 85 fL (82-100); MONOCYTES # (AUTO) 2.4 /CMM (0.1-1.30); MONOCYTES % (AUTO) 7.1 % (2.0-12.0); NEUTROPHILS # (AUTO) 30.4 /CMM (1.8-8.9); NEUTROPHILS % (AUTO) 89.5 % (43.0-81.0); RDW COEFFICIENT OF VARIATION 19.4 (11.5-15.0); RED BLOOD CELL COUNT(AUTO) 3.15 MIL/uL (4.0-5.2)
[2017-09-18 05:13] LABS: PLATELET COUNT (AUTO) 35 /CMM (150-450)
[2017-09-18 05:25] LABS: CALCIUM, SERUM 9.7 mg/dL (8.5-10.1); CARBON DIOXIDE 22 mmol/L (21-32); CHLORIDE 106 mmol/L (98-107); CREATININE 4.5 mg/dL (0.6-1.3); GLUCOSE 144 mg/dL (74-106); PHOSPHORUS 3.9 mg/dL (2.5-4.9); POTASSIUM 4.1 mmol/L (3.5-5.1); SODIUM SERUM 143 mmol/L (136-145); UREA NITROGEN, BLOOD 51 mg/dL (7-18)
[2017-09-18 06:31] LABS: NEUTROPHILS % (MANUAL) 86 (42-76)
[2017-09-18 06:32] LABS: BAND % (MANUAL) 2 % (0.0-5.0); EOSINOPHILS % (MANUAL) 1 % (0-4); LYMPHOCYTES % (MANUAL) 5 % (16-48); MONOCYTES % (MANUAL) 6 % (0-11.0)
--- NOTE | 2017-09-18 06:50 | NUR ---
MACHINING SUPERVISOR: NO SIGNIFICANT KHADIJAH DURING THE SHIFT. NO ACUTE DISTRESS, NO EVIDENCE OF DISCOMFORT. REMAINED OFF PHENYLEPHRINE. NO BOWEL MOVEMENT DURING THE SHIFT AND UNABLE TO COLLECT STOOL SPECIMEN FOR C-DIFF. WILL ENDORSE TO DAY SHIFT FOR CONTINUITY OF CARE.
[2017-09-18] MEDS: DIGOXIN INJ 0.5 MG/2 ML AMPUL IV SCH (09:15)
--- NOTE | 2017-09-18 10:42 | NUR ---
@ 7484. DR CONCEPCION WAS HERE TO MAKE ROUNDS. CONDITION UPDATE GIVEN. @1038. POSITIVE BLOOD CULTURES, 1/2 BOTTLES, GM. POSITIVE COCCI IN CLUSTERS WAS REPORTED BY BISHOP FROM [facility].
[2017-09-18] MEDS ORDERED: DEXTROSE 50%-WATER 50 ML DISP.SYRIN IV PRN (12:00)
[2017-09-18] MEDS: Z GUARD REMEDY 2 OZ OINT TP SCH (12:31)
--- NOTE | 2017-09-18 12:36 | NUR ---
1230. PT. WAS TRANSFERRED TO 113-1 VIA BED ON MONITOR ESCORTED BY RT AND RN. REPORT GIVEN TO DAVID BIRMINGHAM
--- NOTE | 2017-09-18 12:36 | NUR ---
PAULA RN ADMITTING NOTES: REC'D REPORT FROM DAVID VILLALTA. PT TRANSFERRED TO ROOM 113/1, PAULA STATUS VIA BED ACCOMPANIED BY RN, RT AND OIL FIELD OPERATOR. PT IS OBTUNDED, OPENS EYES SPONTANEOUSLY, NOT ON ANY DISTRESS. ON COOL AEROSOL VIA TRACH, FIO2 AT 28%. ON TELEMONITOR, SR W/ HR 90 BPM. HAS KHOA MIDLINE W/ NS X 50 CC/HR INFUSING WELL. HAS GT CLAMPED. PROVIDED COMFORT & SAFETY MEASURES. BED KEPT LOW & IN LOCKED POS. CALL LIGHT PLACED W/IN REACH. WILL CONTINUE TO MONITOR & ATTEND PT NEEDS.
[2017-09-18] MEDS: PANTOPRAZOLE 40 MG VIAL IV SCH (12:47)
--- NOTE | 2017-09-18 17:44 | NUR ---
RN NOTES: PT SEEN & EXAMINED BY RIVERA COOK W/ ORDERS TO REMOVE GT AND COVER W/ COLOSTOMY BAG TEMPORARY. INSERT NGT & START FEEDING PER CUPOLA WORKER RECOMMENDATION. Addendum: 09/18/17 at 1846 by CRISS COELHO RN ADDENDUM: INSERTED NGT ON RIGHT NARE, LEVEL 38. POSITIVE GURGLING SOUND UPON INTRODUCTION OF AIR. VERIFIED W/ CO-NURSE DAVID TROTTER & CONFIRMED PRESENCE OF GURGLING SOUND. ORDERED CXR TO CONFIRM PLACEMENT. NOVASOURCE RENAL 30 CC/HR AND NEPHROVITE 1 TAB VIA NGT DAILY ORDERED PER RD RECOMMENDATION W/ MD'S AND SPORTS DEVELOPMENT OFFICER APPROVAL.
[2017-09-18] MEDS ORDERED: RENAL NOVASOURCE 1,000 ML BOTTLE GT PRN (18:30)
--- NOTE | 2017-09-18 18:47 | NUR ---
RN CLOSING NOTES: NO ACUTE CHANGES NOTED W/IN SHIFT. PT REMAINS OBTUNDED, NOT IN ANY DISTRESS. PT TOLERATED COOL AEROSOL VIA TRACH. ON TELEMONITOR REMAINS SR. GT REMOVED ORDERED, COLOSTOMY BAG PLACED. AWAITING RADTECH TO DO CXR STAT TO CONFIRM NGT PLACEMENT. WOUND CARE DONE. IV LINE ACCESS ON KHOA MIDLINE KEPT PATENT & INTACT W/ NS X 50 CC/HR INFUSING WELL. PT TURNED & REPOSITIONED. KEPT WELL RESTED. NEEDS ATTENDED. BED KEPT LOW & IN LOCKED POS. CALL LIGHT W/IN REACH. WILL ENDORSE TO PM RN FOR KHADIJAH.
--- NOTE | 2017-09-18 20:02 | NUR ---
RN NOTES PATIENT IN BED, EYES CLOSE NOT DISTRESS NOTED. BREATHING EVEN AND UNLABORED. COOL AEROSOL WELL TOLERATED. WAITING FOR XRAY PLACEMENT CONFIRMATION OF NGT. VITAL SIGNS WNL. NO PHYSICAL MANIFESTATION OF PAIN OR DISCOMFORT. WILL CONTINUE TO MONITOR.
[2017-09-18] MEDS: CEFTAZIDIME 1 G in IV D5W 50 ML IV SCH (21:01)
[2017-09-19] VITALS (7 sets, daily range): BP systolic 97–147; BP diastolic 34–72
--- NOTE | 2017-09-19 03:00 | NUR ---
RN NOTES RECEIVED CONFIRMATION OF NGT PLACEMENT TO ADVANCE A LITTLE MORE. ADVANCED TUBING, 2 RNS VERIFIED PLACEMENT WITH POSITIVE GURGLING SOUND. NO LEAKAGE NOTED. KEPT CLEAN AND DRY.
[2017-09-19] MEDS: BLOOD SUGAR DIAGNOSTIC 1 EACH STRIP IN SCH ×3 (05:38→17:29)
[2017-09-19] MEDS: INSULIN REGULAR, HUMAN 100 UNIT/ML 3 ML VIAL SQ PRN ×3 (05:39→17:42)
--- NOTE | 2017-09-19 06:28 | NUR ---
RN NOTES IN BED SLEEPING WITH NO DISTRESS NOTED. BREAHIING EVEN AND UNLABORED. NO PAIN NODED.FEEDING WELL TOLERATED. HOB ELEVATED. VITAL SIGNS WNL. KEPT CLEAN AND DRY. WILL ENDORSE TO AM SHIFT FOR CONTINUITY OF CARE.
[2017-09-19 07:31] LABS: BASOPHILS # (AUTO) 0.1 /CMM (0.0-0.2); BASOPHILS % (AUTO) 0.3 % (0.0-2.0); EOSINOPHILS # (AUTO) 0.2 /CMM (0.0-0.7); EOSINOPHILS % (AUTO) 0.6 % (0.0-6.0); HEMATOCRIT 27 % (33-45); HEMOGLOBIN 8.9 g/dL (11.5-14.8); LYMPHOCYTES # (AUTO) 1.2 /CMM (0.8-4.8); LYMPHOCYTES % (AUTO) 3.9 % (20.0-44.0); MEAN CORPUSCULAR HEMOGLOBIN 28 PG (26.0-33.0); MEAN CORPUSCULAR HGB CONC 33 g/dl (31.0-36.0); MEAN CORPUSCULAR VOLUME 85 fL (82-100); MONOCYTES # (AUTO) 2.1 /CMM (0.1-1.30); NEUTROPHILS # (AUTO) 26.3 /CMM (1.8-8.9); NEUTROPHILS % (AUTO) 88.2 % (43.0-81.0); RDW COEFFICIENT OF VARIATION 19.7 (11.5-15.0); RED BLOOD CELL COUNT(AUTO) 3.21 MIL/uL (4.0-5.2); WHITE BLOOD COUNT (AUTO) 29.8 K/uL (4.3-11.0)
[2017-09-19 07:48] LABS: PLATELET COUNT (AUTO) 32 /CMM (150-450)
[2017-09-19 08:00] LABS: CARBON DIOXIDE 22 mmol/L (21-32); CHLORIDE 107 mmol/L (98-107); CREATININE 5.7 mg/dL (0.6-1.3); GLUCOSE 175 mg/dL (74-106); MAGNESIUM 2.1 mg/dL (1.8-2.4); PHOSPHORUS 4.6 mg/dL (2.5-4.9); POTASSIUM 4.6 mmol/L (3.5-5.1); SODIUM SERUM 144 mmol/L (136-145); UREA NITROGEN, BLOOD 60 mg/dL (7-18)
--- NOTE | 2017-09-19 08:00 | NUR ---
TD/RN AM SHIFT INITIAL NOTES RECEIVED PT AWAKE IN BED, NO ACUTE RESPIRATORY OR CHANGE OF CONDITION NOTED. PT IN NON-VERBAL. ON COOL AEROSOL WITH 28% FIO2, SATURATING @ 97%, LUNG SOUNDS DIMINISHED. RESPIRATIONS EVEN & UNLABORED. ON TELE WITH SINUS RHYTHM WITH FIRST DEGREE AV BLOCK, HR 95. WITH ON GOING IV INFUSION OF NS @ 50CC/HR, IV SITE PATENT WITH NO S/S OF INFECTION. NGT ON RIGHT NARE INTACT, FEEDING @ 30CC/HR, NO GASTRIC RESIDUAL, FLUSHED PATENT, PLACEMENT VERIFIED WITH AUSCULTATION. PT IS COMFORTABLE. SCHEDULED AM MEDS TO BE GIVEN. CL WITHIN REACHED, SAFETY MAINTAINED AND ISOLATION OBSERVED. ON GOING MONITORING.
[2017-09-19 08:53] LABS: BAND % (MANUAL) 2 % (0.0-5.0); LYMPHOCYTES % (MANUAL) 5 % (16-48); MONOCYTES % (MANUAL) 7 % (0-11.0); NEUTROPHILS % (MANUAL) 86 (42-76)
[2017-09-19] MEDS ORDERED: VITAMIN B COMP W-C 1 TAB TABLET PO SCH (09:00)
[2017-09-19] MEDS: PANTOPRAZOLE 40 MG VIAL IV SCH (09:05)
[2017-09-19] MEDS: Z GUARD REMEDY 2 OZ OINT TP SCH (09:05)
--- NOTE | 2017-09-19 10:52 | NUR ---
WOUND CARE CONSULT: PT NOT SEEN YET FOR SKIN ASSESSMENT DUE TO PT HAVING PROCEDURE AT THIS TIME. WILL SEE PT PT CONDITION PERMITS. PT ON FIRST STEP MATTRESS. ALL SKIN PROTECTION MEASURES IN PLACE.
[2017-09-19] MEDS ORDERED: DOSE PER PHARMACY (MD SPECIFY MEDICATION) 1 EA XX PRN (11:00)
--- NOTE | 2017-09-19 12:14 | NUR ---
WOUND CARE CONSULT: PT PRESENTS WITH DRY BLACK NECROTIC TISSUE TO LEFT GREAT TOE, PRESENT ON ADMISSION. RECOMMEND SURGICAL CONSULT. PT ALSO NOTED TO HAVE LEFT HEEL DEEP TISSUE INJURY (INTACT) AND RT GLUTEAL FOLD EXCORIATION. PT NOTED TO HAVE CONTRACTED LEFT LOWER EXTREMITY WITH 2+ PITTING EDEMA. OFFLOADING IS DIFFICULT DUE TO CONTRACTURE. DIFFICULT TO PALPATE PEDAL AND POSTERIOR TIBIAL PULSES DUE TO EDEMA. FOOT IS WARM. PT HAVING FREQUENT LOOSE STOOLS. PT ON FIRST STEP MATTRESS. ALL SKIN PROTECTION MEASURES IN PLACE AND DISCUSSED WITH NURSING STAFF. MD IN AGREEMENT WITH PLAN OF CARE. CURRENT DHAVAL SCORE IS 9.
--- NOTE | 2017-09-19 13:44 | NUR ---
TELE1/HOSPICE CLINICAL SUPERVISOR OF CARE PT ENDORSED TO NURSE ORDONEZ TO CONTINUE CARE.
--- NOTE | 2017-09-19 14:06 | NUR ---
RN NOTES RECEIVED THE PATIENT OBTUNDED, OPENS EYES, ON NGT FEEDING NOVASOURCE AT 30ML/HR, TOLERATING WELL. PATIENT SEEN BY WOUND CARE NURSE WITH ORDERS. PATIENT HAS A NEW RIGHT FEMORAL HD CATH. KHOA MIDLINE PATENT AND INTACT. ON TELE MONITOR SINUS RHYTHM WITH 1ST DEGREE AV BLOCK. ENDORSED BY KARL HERNANDEZ, SHE PAGED DR. DE LA CRUZ FOR THE BLOOD CULTURE PRELIMINARY RESULT. AWAITING FOR DR. DE LA CRUZ TO CALL BACK. RECEIVED A CALL FROM [facility] BIOINFORMAT[employer] COMPUTER SCIENTIST, PATIENT IS GOING TO BE TRANSFERRED TO [facility]. RAHEL LENNON, CONFIRMED TRANSFER TO [facility].
--- NOTE | 2017-09-19 15:00 | NUR ---
RN notes gave report to Kera Case management from [facility].
--- NOTE | 2017-09-19 16:37 | NUR ---
RN notes Daughter at bedside, made aware of patient's transfer to [facility]. Still unsure which [facility]. Still waiting for Kera LENNON, for confirmation. Daughter received discharged instructions and verbalized understanding. Signed discharge paperworks. Wound treatment rendered, ADL skin care provided. Catheter care, oral care and suction provided. Needs attended and met, turned and repositioned, call light within reach, will continue to monitor.
[2017-09-19] MEDS: IV NS 0.9% 1,000 ML IV PRN (17:29)
--- NOTE | 2017-09-19 18:17 | NUR ---
RN Closing notes Patient a/ox1, opens eyes, patient responds by nodding to daughter. Patient breathing even and unlabored, no shortness of breath noted. Wound treatment rendered, Turned and repositioned, Skin care provided. Needs attended and met. Just received a call from [place], Patient will be picked up at 2130 to be transferred to [facility] under Dr. Gresham, Bed 5708 . Will call and give report to [place]. Will endorse to veneer splicer for toma.
--- NOTE | 2017-09-19 18:39 | NUR ---
RN NOTES Called [facility] for report at [phone]. Per [place] staff, they don't know any information about the patient, took my call back number and said they will call me back. Will endorse to night nurse for toma.
--- NOTE | 2017-09-19 19:02 | NUR ---
RN notes Report given to Risa HERNANDEZ at [facility]. Bed # 4130.
--- NOTE | 2017-09-19 19:30 | NUR ---
RN INITIAL NOTES, PATIENT SLEEPING IN BED, OBTUNDED, BREATHING EVEN AND UNLABORED, UNABLE TO VERBALIZED NEEDS, ON COOL AEROSOL WITH TRACH, AT 28% FI02, NO SOB/ACUTE DISTRESS NOTED AT THIS TIME, NG TUBE FEEING INFUSING WELL AND PATIENT TOLERATED WELL, IVF RUNNING WELL TOO, KHOA MIDLINE INTACT AND PATENT, DRY AND CLEAN AT THIS TIME, BED LACKED AND IN LOWEST POSITION , CALL LIGHT W/I REACH, SHE IS GOING TO BE TRANSFER TO [facility], AWAITING FOR TRANSPORTATION, WILL CONTINUE TO MONITOR CLOSELY,
[2017-09-19] MEDS: CEFTAZIDIME 1 G in IV D5W 50 ML IV SCH (19:53)
--- NOTE | 2017-09-19 22:35 | NUR ---
CREDIT UNION MANAGER NOTES, PATIENT EFT IN STABLE CONDITION WITH VS98.8, 93, 20, 99% ON COOL AEROSOL, 129/45, 0/5, ACCOMPANIED OF 2WMTS AND RT, WITH NG TUBE IN PLACE, COLOSTOMY IN PLACE EMPTY, PATIENT DRY AND CLEAN, NO SOB/ACUTE DISTRESS NOTED AT THIS TIME, SHE IS GOING TO [facility] PAPERWORK AND REPORT GIVEN TO RT/MEDICAL STAFF ASSISTANT.
== END 2017-09-19 23:50 | disposition short-term general hospital (02) | DRG 280 ==
LOC: ER 14:43 → ICU 17:37 → TELE-TD 09-18 12:32 → TELE1 09-19 13:47
PROVIDERS: ADMIT Internal Medicine; ATTEND Internal Medicine
PROC: 05H533Z Insertion of Infusion Device into Right Subclavian Vein, Percutaneous Approach (ICD-10-PCS; 2017-09-12)
PROC: B546ZZA Ultrasonography of Right Subclavian Vein, Guidance (ICD-10-PCS; 2017-09-12)
PROC: 5A1945Z Respiratory Ventilation, 24-96 Consecutive Hours (ICD-10-PCS; principal; 2017-09-13)
PROC: 30233R1 Transfusion of Nonautologous Platelets into Peripheral Vein, Percutaneous Approach (ICD-10-PCS; 2017-09-16)
DX: T80.211A Bloodstream infection due to central venous catheter, initial encounter (principal); R65.21 Severe sepsis with septic shock; I21.A1 Myocardial infarction type 2; A41.02 Sepsis due to Methicillin resistant Staphylococcus aureus; J15.6 Pneumonia due to other Gram-negative bacteria; J15.1 Pneumonia due to Pseudomonas; J96.10 Chronic respiratory failure, unspecified whether with hypoxia or hypercapnia; E44.0 Moderate protein-calorie malnutrition; K31.6 Fistula of stomach and duodenum; N18.6 End stage renal disease; R53.2 Functional quadriplegia; G93.49 Other encephalopathy; Z99.11 Dependence on respirator [ventilator] status; G93.1 Anoxic brain damage, not elsewhere classified; I13.2 Hypertensive heart and chronic kidney disease with heart failure and with stage 5 chronic kidney disease, or end stage renal disease; I50.22 Chronic systolic (congestive) heart failure; E11.52 Type 2 diabetes mellitus with diabetic peripheral angiopathy with gangrene; E87.2 Acidosis; I48.92 Unspecified atrial flutter; I96 Gangrene, not elsewhere classified; K94.23 Gastrostomy malfunction; E11.22 Type 2 diabetes mellitus with diabetic chronic kidney disease; E03.9 Hypothyroidism, unspecified; I25.10 Atherosclerotic heart disease of native coronary artery without angina pectoris; R13.10 Dysphagia, unspecified; Z88.8 Allergy status to other drugs, medicaments and biological substances; G40.909 Epilepsy, unspecified, not intractable, without status epilepticus; Z79.82 Long term (current) use of aspirin; Z79.899 Other long term (current) drug therapy; Z95.810 Presence of automatic (implantable) cardiac defibrillator; Z99.2 Dependence on renal dialysis; Z79.4 Long term (current) use of insulin; D63.1 Anemia in chronic kidney disease; Z86.73 Personal history of transient ischemic attack (TIA), and cerebral infarction without residual deficits; R74.0 Nonspecific elevation of levels of transaminase and lactic acid dehydrogenase [LDH]; M85.9 Disorder of bone density and structure, unspecified; Y92.129 Unspecified place in nursing home as the place of occurrence of the external cause; Y84.8 Other medical procedures as the cause of abnormal reaction of the patient, or of later complication, without mention of misadventure at the time of the procedure; D69.59 Other secondary thrombocytopenia; E83.52 Hypercalcemia; I48.2 Chronic atrial fibrillation; Y95 Nosocomial condition; F32.9 Major depressive disorder, single episode, unspecified; I70.0 Atherosclerosis of aorta; E66.01 Morbid (severe) obesity due to excess calories; Z68.38 Body mass index [BMI] 38.0-38.9, adult
CPT/HCPCS: 31720; 36415; 36569; 36600; 71045-TC; 74018; 80048-TC; 80053-TC; 80076-TC; 80202-TC; 82272-TC; 82652; 82803-TC; 82962-TC; 83605-TC; 83735-TC; 83970; 84100-TC; 84484-TC; 85025-TC; 85730-TC; 86850-TC; 87040-TC; 87070-TC; 87081-TC; 87186-TC; 90935-TC; 93307-TC; 94640-TC; 94762-TC; A4216; A4606; A6248; A6253; A6402; A6403; C1751; C9113; J0153; J0282; J0713; J0885; J1160; J1815; J2185; J2370; J2543; J3370; J3475; J3490; J7030; J7040; J7050; J7060; P9016-BL; P9034-BL; P9047; Q9963; Z7610